=== PATIENT | male | born 1965 | race Caucasian/White ===

== ENCOUNTER 2024-08-17 16:28 | Observation (INO) | payer BC ==
--- NOTE | 2024-08-17 16:49 | ED ---
General Adult HPI <Donna Ramirez - Last Filed: 08/17/24 23:02> - General Source: patient Mode of arrival: ambulatory Limitations: no limitations <Agustina Handley - Last Filed: 08/18/24 01:28> - General Stated complaint: blurry vision, high blood pressure, numbness ft Time Seen by Provider: 08/17/24 16:48 - History of Present Illness Initial comments: 59-year-old male presenting with multiple complaints. Patient reports that he was sent over from urgent care. Patient reports fatigue. Patient also reports blurred and/or double vision ongoing in the left eye for the past few days. Patient also states he has been having tingling in the bilateral feet for the past few months. 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 No chest pain, difficulty breathing, fever, chills, URI-like symptoms, urinary symptoms, nausea, vomiting. (Agustina Handley) - Related Data Allergies Allergy/AdvReac Type Severity Reaction Status Date / Time No Known Allergies Allergy Verified 08/17/24 16:49 Review of Systems ROS Other: All systems not noted in ROS Statement are negative. <Donna Ramirez - Last Filed: 08/17/24 23:02> ROS Other: All systems not noted in ROS Statement are negative. <Agustina Handley - Last Filed: 08/18/24 01:28> ROS Statement: Those systems with pertinent positive or pertinent negative responses have been documented in the HPI. Past Medical History - Past Family History Mother Additional Family Medical History / Comment(s): heart valve replaced Father Additional Family Medical History / Comment(s): heart valve replaced <Agustina Handley - Last Filed: 08/18/24 01:28> General Exam <Agustina Handley - Last Filed: 08/18/24 01:28> - General Exam Comments Initial Comments: Visual Physical Exam Vital signs reviewed General: Well-appearing, nontoxic, no acute distress. Head: Normocephalic, atraumatic Eyes: PERRLA, EOMI ENT: Airway patent Chest: Nonlabored breathing Skin: No visual rash, normal skin tone Neuro: Alert and oriented 3 Musculoskeletal: No gross abnormalities (Agustina Handley) Course Vital Signs 08/17/24 08/17/24 16:44 22:08 Temperature 97.8 F 97.8 F Pulse Rate 83 66 Respiratory 18 Rate Blood Pressure 148/94 137/83 O2 Sat by Pulse 100 98 Oximetry Medical Decision Making - Lab Data Result diagrams: 08/17/24 16:49 08/17/24 16:49 <Donna Ramirez - Last Filed: 08/17/24 23:02> - Lab Data Result diagrams: 08/17/24 16:49 08/17/24 16:49 <Agustina Handley - Last Filed: 08/18/24 01:28> - Medical Decision Making Was pt. sent in by a medical professional or institution (, PA, BROKERAGE OFFICE MANAGER, urgent care, hospital, or snf...) When possible be specific @ -[No] Did you speak to anyone other than the patient for history (EMS, parent, family, police, friend...)? What history was obtained from this source @ -[No] Did you review nursing and triage notes (agree or disagree)? Why? @ -[I reviewed and agree with nursing and triage notes] Were old charts reviewed (outside hosp., previous admission, EMS record, old EKG, old radiological studies, urgent care reports/EKG's, snf records)? Report findings @ -[No old charts were reviewed] Differential Diagnosis (chest pain, altered mental status, abdominal pain women, abdominal pain men, vaginal bleeding, weakness, fever, dyspnea, syncope, headache, dizziness, GI bleed, back pain, seizure, CVA, palpatations, mental health, musculoskeletal)? @ -[not applicable] EKG interpreted by me (3pts min.). @ -Yes and demonstrates sinus rhythm with a rate of 77. LA interval 200. QRS 93. QTc of 386. No acute ST segment elevations or depressions X-rays interpreted by me (1pt min.). @ -[None done] CT interpreted by me (1pt min.). @ -[None done] U/S interpreted by me (1pt. min.). @ -[None done] What testing was considered but not performed or refused? (CT, X-rays, U/S, labs)? Why? @ -[None] What meds were considered but not given or refused? Why? @ -[None] Did you discuss the management of the patient with other professionals (professionals i.e. , PA, BROKERAGE OFFICE MANAGER, lab, RT, psych nurse, licensed social worker, durable medical equipment technician, teacher, county records management officer, correctional case manager)? Give summary @ -[No] Was smoking cessation discussed for >3mins.? @ -[No] Was critical care preformed (if so, how long)? @ -[No] Were there social determinants of health that impacted care today? How? (Homelessness, low income, unemployed, alcoholism, drug addiction, transportation, low edu. Level, literacy, decrease access to med. care, longterm, rehab)? @ -[No] Was there de-escalation of care discussed even if they declined (Discuss DNR or withdrawal of care, Hospice)? DNR status @ -[No] What co-morbidities impacted this encounter? (DM, HTN, Smoking, COPD, CAD, Cancer, CVA, ARF, Chemo, Hep., AIDS, mental health diagnosis, sleep apnea, morbid obesity)? @ -[None] Was patient admitted / discharged? Hospital course, mention meds given and route, prescriptions, significant lab abnormalities, going to OR and other pertinent info. @ -[hospital course] Undiagnosed new problem with uncertain prognosis? @ -[No] Drug Therapy requiring intensive monitoring for toxicity (Heparin, Nitro, Insulin, Cardizem)? @ -[No] Were any procedures done? @ -[No] Diagnosis/symptom? @ -[default] Acute, or Chronic, or Acute on Chronic? @ -[default] Uncomplicated (without systemic symptoms) or Complicated (systemic symptoms)? @ -[default] Side effects of treatment? @ -[No] Exacerbation, Progression, or Severe Exacerbation? @ -[No] Poses a threat to life or bodily function? How? (Chest pain, [place], [place], pneumonia, PE, COPD, DKA, ARF, appy, cholecystitis, CVA, Diverticulitis, Homicidal, Suicidal, threat to staff... and all critical care pts) @ -[No] (Donna Ramirez) I performed the quick note portion of this visit, electronically signed Agustina Handley PA-C (Agustina Handley) - Lab Data Lab Results 04/10/25 04/10/25 04/10/25 Range/Units 16:49 16:49 16:49 WBC 6.57 (4.50-10.00) 10*3/uL RBC 6.03 H (4.40-5.60) 10*6/uL Hgb 18.4 H (13.0-17.0) g/dL Hct 50.9 H (39.6-50.0) % MCV 84.4 (80.0-97.0) fL MCH 30.5 (27.0-32.0) pg MCHC 36.1 (32.0-37.0) g/dL Plt Count 180 (140-440) 10*3/uL MPV 10.6 (9.5-12.2) fL Immature Gran % (Auto) 0.2 % Neutrophils % 61.4 % Lymphocytes % 27.7 % Monocytes % 8.1 % Eosinophils % 1.7 % Basophils % 0.9 % Immature Gran # 0.01 (0.00-0.04) 10*3/uL Neutrophils # 4.04 (1.80-7.70) 10*3/uL Lymphocytes # 1.82 (0.90-5.00) 10*3/uL Monocytes # 0.53 (0.20-1.00) 10*3/uL Eosinophils # 0.11 (0.04-0.35) 10*3/uL Basophils # 0.06 (0.00-0.10) 10*3/uL Sodium 132 L (137-145) mmol/L Potassium 4.6 (3.5-5.1) mmol/L Chloride 99 (98-107) mmol/L Carbon Dioxide 25 (22-30) mmol/L Anion Gap 8 mmol/L BUN 15 (9-20) mg/dL Creatinine 0.66 (0.66-1.25) mg/dL Est GFR (CKD-EPI)AfAm >90 (>60 ml/min/1.73 sqM) Est GFR (CKD-EPI)NonAf >90 (>60 ml/min/1.73 sqM) Glucose 362 H (74-99) mg/dL Calcium 9.1 (8.4-10.2) mg/dL Total Bilirubin 0.9 (0.2-1.3) mg/dL AST 22 (17-59) U/L ALT 23 (4-49) U/L Alkaline Phosphatase 79 (38-126) U/L Troponin I <0.012 (0.000-0.034) ng/mL C-Reactive Protein <0.5 (<1.0) mg/dL Total Protein 6.9 (6.3-8.2) g/dL Albumin 4.2 (3.5-5.0) g/dL TSH (0.465-4.680) mIU/L 08/17/24 Range/Units 21:05 WBC (4.50-10.00) 10*3/uL RBC (4.40-5.60) 10*6/uL Hgb (13.0-17.0) g/dL Hct (39.6-50.0) % MCV (80.0-97.0) fL MCH (27.0-32.0) pg MCHC (32.0-37.0) g/dL Plt Count (140-440) 10*3/uL MPV (9.5-12.2) fL Immature Gran % (Auto) % Neutrophils % % Lymphocytes % % Monocytes % % Eosinophils % % Basophils % % Immature Gran # (0.00-0.04) 10*3/uL Neutrophils # (1.80-7.70) 10*3/uL Lymphocytes # (0.90-5.00) 10*3/uL Monocytes # (0.20-1.00) 10*3/uL Eosinophils # (0.04-0.35) 10*3/uL Basophils # (0.00-0.10) 10*3/uL Sodium (137-145) mmol/L Potassium (3.5-5.1) mmol/L Chloride (98-107) mmol/L Carbon Dioxide (22-30) mmol/L Anion Gap mmol/L BUN (9-20) mg/dL Creatinine (0.66-1.25) mg/dL Est GFR (CKD-EPI)AfAm (>60 ml/min/1.73 sqM) Est GFR (CKD-EPI)NonAf (>60 ml/min/1.73 sqM) Glucose (74-99) mg/dL Calcium (8.4-10.2) mg/dL Total Bilirubin (0.2-1.3) mg/dL AST (17-59) U/L ALT (4-49) U/L Alkaline Phosphatase (38-126) U/L Troponin I (0.000-0.034) ng/mL C-Reactive Protein (<1.0) mg/dL Total Protein (6.3-8.2) g/dL Albumin (3.5-5.0) g/dL TSH 1.420 (0.465-4.680) mIU/L Disposition Is patient prescribed a controlled substance at d/c from ED?: No Time of Disposition: 21:42 Decision to Admit Reason: Admit from EC Decision Date: 08/17/24 Decision Time: 21:43 <Donna Ramirez - Last Filed: 08/17/24 23:02> <Agustina Handley - Last Filed: 08/18/24 01:28> Clinical Impression: Transient vision disturbance, right, Hyperglycemia Disposition: ADMITTED IP TO THIS HOSP Condition: Serious
--- NOTE | 2024-08-17 17:51 | CT ---
EXAMINATION TYPE: CT brain wo con DATE OF EXAM: 08/17/2024 5:17 PM COMPARISON: None. CLINICAL INDICATION: Male, 59 years old with history of visual disturbance, Pt is coming in for fatig ue, headaches, and blurred vision in his right eye. Pt is having numbness and tingling in his feet. TECHNIQUE: Brain: Axial CT images of the brain were obtained with coronal and sagittal reformats created and rev iewed. Contrast used: None. Oral contrast used: None. CT DLP: 1215.4 mGycm, Automated exposure control for dose reduction was used. FINDINGS: Brain: Extra-axial spaces: No abnormal extra-axial fluid collections. Ventricular system: Within normal limits Cerebral parenchyma: No acute intraparenchymal hemorrhage or mass effect. The cooley-white junction is well differentiated. Cerebellum: Unremarkable. Mass effect: No evidence of midline shift. Intracranial vasculature: unremarkable Soft tissues: Normal. Calvarium/osseous structures: No depressed skull fracture. Paranasal sinuses and mastoid air cells: Mild scattered paranasal sinus disease. Retention cyst in th e right maxillary sinus measuring up to 10 mm. Visualized orbits: Orbital contents are intact. IMPRESSION: No acute intracranial process. [facility], , 08/17/2024 5:49 PM
[2024-08-17 18:11] LABS: Basophils # (A) 0.06 10*3/uL (0.00-0.10); Basophils % (A) 0.9 %; Eosinophils # (A) 0.11 10*3/uL (0.04-0.35); Eosinophils % (A) 1.7 %; HCT 50.9 % (39.6-50.0); HGB 18.4 g/dL (13.0-17.0); Lymphocytes # (A) 1.82 10*3/uL (0.90-5.00); Lymphocytes % (A) 27.7 %; MCH 30.5 pg (27.0-32.0); MCHC 36.1 g/dL (32.0-37.0); MCV 84.4 fL (80.0-97.0); Mean Platelet Volume 10.6 fL (9.5-12.2); Monocytes # (A) 0.53 10*3/uL (0.20-1.00); Monocytes % (A) 8.1 %; Neutrophils # (A) 4.04 10*3/uL (1.80-7.70); Neutrophils % (A) 61.4 %; Platelet Count 180 10*3/uL (140-440); RBC 6.03 10*6/uL (4.40-5.60); RDW 11.4 % (11.5-14.5); WBC 6.57 10*3/uL (4.50-10.00)
[2024-08-17 18:28] LABS: ALT 23 U/L (4-49); AST 22 U/L (17-59); African American GFR (CKD) >90 (>60 ml/min/1.73 sqM); Albumin 4.2 g/dL (3.5-5.0); Alkaline Phosphatase 79 U/L (38-126); Anion Gap 8 mmol/L; Blood Urea Nitrogen 15 mg/dL (9-20); C Reactive Protein <0.5 mg/dL (<1.0); Calcium 9.1 mg/dL (8.4-10.2); Carbon Dioxide 25 mmol/L (22-30); Chloride 99 mmol/L (98-107); Glucose 362 mg/dL (74-99); Non-African American GFR(CKD) >90 (>60 ml/min/1.73 sqM); Potassium 4.6 mmol/L (3.5-5.1); Sodium 132 mmol/L (137-145); Total Bilirubin 0.9 mg/dL (0.2-1.3); Total Protein 6.9 g/dL (6.3-8.2)
[2024-08-17] MEDS ORDERED: NALOXONE 0.4 MG/ML 1 ML VIAL IV PRN (21:43)
[2024-08-17] MEDS ORDERED: DEXTROSE 50% SYRINGE 50 ML IVP PRN ×2 (21:44)
--- NOTE | 2024-08-17 22:10 | CT ---
EXAMINATION TYPE: CT angio head neck CT DLP: 908 mGycm, Automated exposure control for dose reduction was used. DATE OF EXAM: 08/17/2024 9:57 PM COMPARISON: CT brain 08/17/2024. CLINICAL INDICATION:Male, 59 years old with history of right eye visual disturbance; PHH, Headache, h ypertension, blurred vision. TECHNIQUE: Axially acquired helical CT angiogram of the head and neck was obtained with contrast util izing 75 cc of Isovue-370 administered intravenously. NASCET criteria used. MIP imaging performed on a separate workstation and submitted for review. FINDINGS: CTA HEAD: No evidence of acute intracranial hemorrhage, mass effect, or midline shift. The ventricles, sulci, a nd cisterns are unremarkable. The visualized portions of the internal carotid arteries, middle cerebral arteries, anterior cerebral arteries, and posterior cerebral arteries are patent. The basilar and vertebral arteries are patent. CTA NECK: Right Carotid System: The common carotid artery and external carotid artery are patent. The carotid bifurcation demonstrate s no evidence of hemodynamically significant stenosis. The remaining portions of the internal carotid artery demonstrate normal size without significant narrowing. Left Carotid System: The common carotid artery and external carotid artery are patent. The carotid bifurcation demonstrate s no evidence of hemodynamically significant stenosis. The remaining portions of the internal carotid artery demonstrate normal size without significant narrowing. The left vertebral artery is dominant and patent. There is nonvisualization of the right vertebral ar satya beginning at its origin however there is distal reconstitution involving the V3 and V4 segments extending to the basilar artery. There is a bovine aortic arch. The origins of the great vessels are patent. No evidence of hemodynami vikas significant stenosis. 9 mm hypodense right thyroid lobe nodule. Right maxillary sinus 1 cm mucous retention cyst. IMPRESSION: 1. No evidence of dissection of the cervical internal carotid arteries. No significant stenosis of th e carotid bifurcations. 2. Nonvisualization of the right vertebral artery at its origin with distal reconstitution in the V3 and V4 segments. Raises concern for occlusion versus hypoplasia. Dominant patent left vertebral arter y. 3. No evidence of intracranial aneurysm or high-grade stenosis. [facility], , 08/17/2024 10:07 PM
[2024-08-17] MEDS: SODIUM CHLORIDE 0.9% 1,000 ML IV SCH (22:12)
[2024-08-17 23:01] LABS: Glucose,Whole Blood 305 mg/dL (70-110)
[2024-08-17] MEDS: INSULIN LISPRO (HumaLOG) 100 UNIT/ML 10 mL VL SQ SCH (23:59)
[2024-08-17] MEDS: ASPIRIN 325 MG TAB PO SCH (23:59)
[2024-08-18 03:12] LABS: Basophils # (A) 0.07 10*3/uL (0.00-0.10); Basophils % (A) 1.2 %; Eosinophils # (A) 0.11 10*3/uL (0.04-0.35); Eosinophils % (A) 1.8 %; HCT 47.3 % (39.6-50.0); HGB 16.6 g/dL (13.0-17.0); Lymphocytes # (A) 2.25 10*3/uL (0.90-5.00); Lymphocytes % (A) 37.3 %; MCH 29.9 pg (27.0-32.0); MCHC 35.1 g/dL (32.0-37.0); MCV 85.2 fL (80.0-97.0); Mean Platelet Volume 10.2 fL (9.5-12.2); Monocytes # (A) 0.47 10*3/uL (0.20-1.00); Monocytes % (A) 7.8 %; Neutrophils # (A) 3.13 10*3/uL (1.80-7.70); Neutrophils % (A) 51.7 %; Platelet Count 164 10*3/uL (140-440); RBC 5.55 10*6/uL (4.40-5.60); RDW 11.6 % (11.5-14.5); WBC 6.04 10*3/uL (4.50-10.00)
[2024-08-18 03:38] LABS: African American GFR (CKD) >90 (>60 ml/min/1.73 sqM); Anion Gap 4 mmol/L; Blood Urea Nitrogen 12 mg/dL (9-20); Carbon Dioxide 27 mmol/L (22-30); Chloride 102 mmol/L (98-107); Glucose 227 mg/dL (74-99); Non-African American GFR(CKD) >90 (>60 ml/min/1.73 sqM); Sodium 133 mmol/L (137-145)
[2024-08-18 06:17] LABS: Glucose,Whole Blood 225 mg/dL (70-110)
[2024-08-18] MEDS ORDERED: INSULIN LISPRO (HumaLOG) 100 UNIT/ML 10 mL VL SQ SCH (07:30)
[2024-08-18 11:44] LABS: Glucose,Whole Blood 211 mg/dL (70-110)
--- NOTE | 2024-08-18 12:57 | P.CNNES ---
History of Present Illness Consult date: 08/18/24 Requesting physician: Donna Ramirez Reason for Consult: visual disturbance right eye History of Present Illness: This is a 59-year-old gentleman who presents the emergency department because of right visual disturbance, diplopia over the last 2 days. He stated that he woke up 2 days ago with no symptoms. Patient feels he has fatigue. Denies any focal weakness. Denies any headache. Denies any speech difficulty or any any difficulty swallowing. He has been having numbness over both feet and according to the she stated it has been going on for the last 1 year but the patient does not feel it has been that long and the patient feels his both feet numbness is due to his work and he does a lot of walking on his feet. He has not seen a physician over the last 7 years. Denies any history of stroke in the past. Denies any medical issues. He drinks 4-5 beers over the weekend. Denies tobacco use, illicit drug use. Some of the work-up during this hospital visit consisted of: A1c is 12.6 the patient states that he does not have any history of diabetes but again he has not seen a physician over the 12 years TSH is 1.420 I reviewed the rest of the lab workup CT head It is reported as no acute intracranial process. Personally reviewed the CT and agree with the report. CTA head and neck: No evidence of dissection of cervical internal carotid artery. No significant stenosis of the carotid bifurcation. Nonvisualization of the right vertebral artery at the origin with distal reconstitution in the V3 and V4 segment. Raises concern for occlusion versus hypoplasia. Patent left vertebral artery. No evidence of intracranial aneurysm or high-grade stenosis. Review of Systems As per HPI. Past Medical History Past Medical History: No Reported History History of Any Multi-Drug Resistant Organisms: None Reported Past Surgical History: No Surgical Hx Reported Smoking Status: Never smoker Past Alcohol Use History: None Reported Past Drug Use History: None Reported - Past Family History Mother Additional Family Medical History / Comment(s): heart valve replaced Father Additional Family Medical History / Comment(s): heart valve replaced Medications and Allergies Home Medications Medication Instructions Recorded Confirmed Type No Known Home Medications 08/18/24 08/18/24 History Allergies Allergy/AdvReac Type Severity Reaction Status Date / Time No Known Allergies Allergy Verified 08/18/24 08:07 Physical Examination - Vital Signs Vital Signs: Vital Signs Temp Pulse Pulse Resp BP BP Pulse Ox 08/18/24 08:45 97.6 F 69 18 162/90 99 08/18/24 02:00 97.9 F 79 15 156/79 08/17/24 23:39 97.7 F 70 14 154/101 08/17/24 22:08 97.8 F 66 137/83 98 08/17/24 16:44 97.8 F 83 18 148/94 100 Intake and Output 08/17/24 08/18/24 08/18/24 22:59 06:59 14:59 Other: Weight 126.099 kg 126.099 kg GENERAL: The patient is lying in bed and is not in acute distress. NEUROLOGICAL: Higher mental function: The patient is awake, alert, oriented to self, place and time. Patient is following commands. No aphasia and no neglect. Cranial nerves: The pupils are round, equal and reactive to light and accommodation. Visual meza are full to confrontation throughout. Extraocular movement is has restriction on the right lateral rectus and stay midline upon asking patient to look to right. Otherwise no restriction and no nystagmus noted. Facial sensation is normal to touch throughout. The facial strength is normal throughout. Hearing is normal bilaterally to hand rub. Tongue is midline and moved [id number] without any difficulty. No dysarthria is noted. Shoulder shrug is normal bilaterally. Motor: The strength is 5 over 5 throughout. Normal tone and bulk. Cerebellum: Normal finger to nose bilaterally. Sensation: Sensation is normal to touch throughout. Reflexes (right/left):2+ in uppers while lowers are 1+. Plantars are downgoing bilaterally. Results - Laboratory Findings CBC and BMP: 08/18/24 02:59 08/18/24 02:59 Abnormal Lab Findings: Abnormal Labs 08/17/24 08/17/24 08/17/24 16:49 16:49 21:05 RBC 6.03 H Hgb 18.4 H Hct 50.9 H Sodium 132 L Creatinine Glucose 362 H POC Glucose (mg/dL) Hemoglobin A1c 12.6 H 08/17/24 08/18/24 08/18/24 22:59 02:59 02:59 RBC Hgb Hct Sodium 133 L Creatinine 0.61 L Glucose 227 H POC Glucose (mg/dL) 305 H Hemoglobin A1c 12.6 H 08/18/24 08/18/24 06:14 11:43 RBC Hgb Hct Sodium Creatinine Glucose POC Glucose (mg/dL) 225 H 211 H Hemoglobin A1c Assessment and Plan Assessment: This is a 59-year-old gentleman who presents the emergency department because of blurry vision over the right eye with diplopia over the last 2 days. He also has been having fatigue. Her he has not been seen by primary care physician over the last 7 years. His hemoglobin A1c during this hospital visit is 12.6. He has blood pressure in the 140s to 150s over 70s over 90s. Acute right lateral rectus palsy: Likely due to diabetic retinopathy due to his newly diagnosed diabetes that is uncontrolled (HbA1c of 12.6) Close uncontrolled diabetes mellitus Hypertension that is newly controlled No peripheral neuropathy in the lower extremity due to his diabetes mellitus and he has been having for at least 6 months up to a year Plan: Patient starting the patient on aspirin 325 daily. I ordered MRI of the brain without to rule out stroke. Unlikely stroke but if does have a stroke, it is chronic small vessel disease due to his risk factors. Recommend better sugar control as well as blood pressure control Upon discharge recommend the patient to follow-up with educational coordinator as an outpatient within 2 weeks Will defer the rest of the medical management to primary and other specialist next Plan discussed with the patient and his who is at bedside as well as his nurse Thank you for the consultation Dr. Bryant will resume neurology service tomorrow A.M. then Dr. Kolb this Wednesday. Time with Patient: Greater than 30
[2024-08-18 15:40] VITALS: BMI 33.8
[2024-08-18 16:40] LABS: Glucose,Whole Blood 253 mg/dL (70-110)
[2024-08-18 21:43] LABS: Glucose,Whole Blood 238 mg/dL (70-110)
[2024-08-19 02:56] VITALS: RESP 18; TEMP 98.6
[2024-08-19 06:51] LABS: Glucose,Whole Blood 212 mg/dL (70-110)
[2024-08-19 07:56] VITALS: BP 119/81; PULSE 90
[2024-08-19 11:33] LABS: Glucose,Whole Blood 312 mg/dL (70-110)
[2024-08-19] MEDS: metFORMIN 500 MG TAB PO SCH (11:53)
--- NOTE | 2024-08-19 14:17 | P.PN ---
Subjective Progress Note Date: 08/19/24 The patient is a 59-year-old male who was seen in neurologic follow-up on August 19, 2024, in collaboration with Janie Godfrey, via teleneurology. Patient's chart has been reviewed. The patient continues to have horizontal diplopia on primary gaze. He says that if he turns his head to the right and then his eyes to the left, he does not have double vision. When he covers 1 eye, he does not have diplopia. The patient does report blurring of the vision from his right eye. CT scan of the brain performed in the emergency department was negative for acute hemorrhage and infarct. CT angiogram of the head and neck revealed no evidence of significant stenosis, large vessel occlusion or aneurysm. Objective - Vital Signs Vital signs: Vital Signs Temp 98.6 F 08/19/24 02:16 Pulse 90 08/19/24 07:55 Resp 18 08/19/24 07:55 BP 119/81 08/19/24 07:55 Pulse Ox 98 08/19/24 07:55 FiO2 Intake & Output 08/18/24 08/19/24 08/19/24 18:59 06:59 18:59 Intake Total 1550 540 Balance 1550 540 Weight 126.099 kg Intake: Intake, IV Titration 900 Amount Sodium Chloride 0.9% 1, 900 000 ml @ 75 mls/hr IV . [id number] LIZETTE Rx#:[id number] Oral 650 540 Other: # Voids 3 # Bowel Movements 0 - Exam General: Patient is well-nourished, well-developed and in no acute distress HEENT: Head is atraumatic, normocephalic. Fundus not visualized. There is no scleral icterus. Mucous membranes are moist. Neurological examination Mental status: Patient awake, alert and oriented x 3. His speech is clear. There is no dysarthria or aphasia. Cranial nerves: Pupils are equal at 3 mm and reactive. Visual meza are full to confrontation. Extraocular movements reveal a right lateral rectus palsy. There is no nystagmus. Facial sensation is intact. There is no facial asymmetry. Hearing is grossly intact. Uvula and palate are midline. Shoulder shrug is symmetric. Tongue protrudes midline. - Labs CBC & Chem 7: 08/18/24 02:59 08/18/24 02:59 Labs: Abnormal Lab Results - Last 24 Hours (Table) 08/18/24 08/18/24 08/18/24 Range/Units 11:45 16:38 21:41 POC Glucose (mg/dL) 253 H 238 H (70-110) mg/dL Hemoglobin A1c 12.7 H (<=6.0) % 08/19/24 08/19/24 Range/Units 06:49 11:31 POC Glucose (mg/dL) 212 H 312 H (70-110) mg/dL Hemoglobin A1c (<=6.0) % Assessment and Plan Assessment: 1. Acute onset right lateral rectus palsy in the setting of newly diagnosed, poorly controlled diabetes mellitus. Hemoglobin A1c 12.7. Diabetes mellitus is likely the etiology of the patient's lateral rectus palsy however it is important to rule out evidence of a brainstem stroke and/or aneurysm 2. Newly diagnosed diabetes mellituscute right lateral rectus palsy: Likely due to diabetic retinopathy due to his newly diagnosed diabetes that is uncontrolled (HbA1c of 12.6) 3. Hypertension that is newly controlled 4. Peripheral neuropathy in the lower extremity due to his diabetes mellitus and he has been having for at least 6 months up to a year Plan: 1. Began aspirin 325 daily. 2. MRI of the brain has been ordered, to rule out stroke. According to the MRI department, testing cannot be done until at least Wednesday, would recommend di gerald patient and schedule outpatient MRI without gadolinium 3. Recommend better sugar control as well as blood pressure control 4. Upon discharge recommend the patient to follow-up with meat curer as an outpatient within 2 weeks 5. Will defer the rest of the medical management to primary and other specialist next 6. Discharge, for outpatient MRI of the brain was discussed with the patient's nurse. She advised that she would contact the primary physician with my recommendations Time with Patient: Greater than 30 (35 minutes were spent caring for this ene ent today including, obtaining history, examining the patient, reviewing imaging, chart documentation, labs, placing orders and creating this note)
== END 2024-08-19 16:44 | disposition home or self-care (01) ==
LOC: EC 16:28 → 1SOBS 21:45
PROVIDERS: ADMIT Internal Medicine; ATTEND Internal Medicine
DX: E11.65 Type 2 diabetes mellitus with hyperglycemia (principal); H49.881 Other paralytic strabismus, right eye; E11.42 Type 2 diabetes mellitus with diabetic polyneuropathy; E11.319 Type 2 diabetes mellitus with unspecified diabetic retinopathy without macular edema; I10 Essential (primary) hypertension
CPT/HCPCS: 99285; 36415; 93005; 80053; 80048; 84443; 84484; 85025 ×2; 86140; 83036 ×2; 70496; 70450; 70498; G0378 ×3; Q9967